=== PATIENT | male | born 1995 | race African-American/Black ===

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

== ENCOUNTER 2017-12-18 20:25 | Emergency (ER) | payer SELFPAY ==
[2017-12-18] MEDS ORDERED: FENTANYL CITRATE INJ/PF 100 MCG/2 ML AMPUL ONE (20:31)
[2017-12-18] MEDS ORDERED: CEFAZOLIN 1 GM/D5W RTU 1 GM/50 ML RTUPB IV ONE (20:32)
[2017-12-18] MEDS ORDERED: FENTANYL CITRATE INJ/PF 100 MCG/2 ML AMPUL IV ONE (20:38)
[2017-12-18] MEDS ORDERED: CEFAZOLIN INJ 1 GM VIAL IV ONE (20:39)
[2017-12-18] MEDS ORDERED: HYDROMORPHONE HCL INJ/PF 2 MG/ML AMPULE IV ONE (20:40)
[2017-12-18] MEDS ORDERED: NORMAL SALINE 1000 ML 1,000 ML IV ONE (20:40)
[2017-12-18 21:00] LABS: INTERNATIONAL RATION (INR) 0.92; PROTHROMBIN TIME 12.8 SEC (11.4-15.4)
[2017-12-18 21:01] LABS: PARTIAL THROMBOPLASTIN TIME 27.7 SEC (23.5-35.8)
[2017-12-18 21:05] LABS: HEMOGLOBIN 15.7 g/dL (13.5-17.0); MEAN CORPUSCULAR HEMOGLOBIN 28.9 pg (27.0-33.4); MEAN CORPUSCULAR HGB CONC 34.1 g/dL (32.0-36.0); MEAN CORPUSCULAR VOLUME 85 fl (80-97); PLATELET COUNT 322 10^3/uL (150-450); RED BLOOD COUNT 5.44 10^6/uL (4.35-5.55); RED CELL DISTRIBUTION WIDTH 12.8 % (11.5-14.0); WHITE BLOOD COUNT 11.9 10^3/uL (4.0-10.5)
[2017-12-18 21:13] LABS: ALANINE AMINOTRANSFERASE 42 U/L (21-72); ALCOHOL 19 mg/dL (NONE DETECTED); ALKALINE PHOSPHATASE 67 U/L (38-126); ANION GAP 16 (5-19); ASPARTATE AMINO TRANSFERASE 37 U/L (17-59); BILIRUBIN,DIRECT 0.4 mg/dL (0.0-0.4); BILIRUBIN,TOTAL 0.6 mg/dL (0.2-1.3); BLOOD UREA NITROGEN 15 mg/dL (7-20); CARBON DIOXIDE 23 mmol/L (22-30); CHLORIDE 107 mmol/L (98-107); GLUCOSE 119 mg/dL (75-110); POTASSIUM 3.9 mmol/L (3.6-5.0); SODIUM 146.4 mmol/L (137-145); TOTAL PROTEIN 8.3 g/dL (6.3-8.2)
--- NOTE | 2017-12-18 21:14 | RADIOLOGY REPORT (SQ) ---
EXAM DESCRIPTION: CT HEAD WITHOUT COMPLETED DATE/TIME: 12/18/2017 9:05 pm REASON FOR STUDY: trauma COMPARISON: None. TECHNIQUE: Axial images acquired through the brain without intravenous contrast. Images reviewed wi th bone, brain and subdural windows. Additional sagittal and coronal reconstructions were generated. Images stored on PACS. All CT scanners at this facility use dose modulation, iterative reconstruction, and/or weight based d osing when appropriate to reduce radiation dose to as low as reasonably achievable (ALARA). [facility]: Dose Right [facility]: CareDose [facility]: Dose Right [facility]: Teradose 4D [facility]: [employer] RADIATION DOSE: CT Rad equipment meets quality standard of care and radiation dose reduction techniq ues were employed. CTDIvol: 53.2 mGy. DLP: 1044 mGy-cm. mGy. LIMITATIONS: None. FINDINGS: VENTRICLES: Normal size and contour. CEREBRUM: No masses. No hemorrhage. No midline shift. No evidence for acute infarction. Normal gra y/white matter differentiation. No areas of low density in the white matter. CEREBELLUM: No masses. No hemorrhage. No alteration of density. No evidence for acute infarction. EXTRAAXIAL SPACES: No fluid collections. No masses. ORBITS AND GLOBE: No intra- or extraconal masses. Normal contour of globe without masses. CALVARIUM: No fracture. PARANASAL SINUSES: No fluid or mucosal thickening. SOFT TISSUES: No mass or hematoma. OTHER: No other significant finding. IMPRESSION: NORMAL BRAIN CT WITHOUT CONTRAST. EVIDENCE OF ACUTE STROKE: NO. COMMENT: Quality ID # [id number]: Final reports with documentation of one or more dose reduction techniques (e.g., Automated exposure control, adjustment of the mA and/or kV according to patient size, use of iterative reconstruction technique) TECHNICAL DOCUMENTATION: JOB ID: [id number] [employer]- All Rights Reserved Reading location - IP/workstation name: [email or web address]
--- NOTE | 2017-12-18 21:15 | RADIOLOGY REPORT (SQ) ---
EXAM DESCRIPTION: CT CERVICAL SPINE WITHOUT COMPLETED DATE/TIME: 12/18/2017 9:05 pm REASON FOR STUDY: trauma COMPARISON: None. TECHNIQUE: Axial images acquired through the cervical spine without intravenous contrast. Images re viewed with lung, soft tissue and bone windows. Reconstructed coronal and sagittal MPR images review ed. Images stored on PACS. All CT scanners at this facility use dose modulation, iterative reconstruction, and/or weight based d osing when appropriate to reduce radiation dose to as low as reasonably achievable (ALARA). [facility]: Dose Right [facility]: CareDose [facility]: Dose Right [facility]: Teradose 4D [facility]: [employer] RADIATION DOSE: CT Rad equipment meets quality standard of care and radiation dose reduction techniq ues were employed. CTDIvol: 23.6 mGy. DLP: 594 mGy-cm. mGy. LIMITATIONS: None. FINDINGS: ALIGNMENT: Anatomic. MINERALIZATION: Normal. VERTEBRAL BODIES: No fractures or dislocation. DISCS: No significant disc disease. FACETS, LATERAL MASSES, POSTERIOR ELEMENTS: No fractures. No dislocation. No acute findings. HARDWARE: None in the spine. VISUALIZED RIBS: No fractures. LUNG APICES AND SOFT TISSUES: No significant or acute findings. OTHER: No other significant finding. IMPRESSION: NO ACUTE OR SIGNIFICANT FINDINGS IN THE CERVICAL SPINE. TECHNICAL DOCUMENTATION: JOB ID: [id number] Quality ID # [id number]: Final reports with documentation of one or more dose reduction techniques (e.g., Au tomated exposure control, adjustment of the mA and/or kV according to patient size, use of iterative reconstruction technique) 2010 [employer]- All Rights Reserved Reading location - IP/workstation name: [email or web address]
--- NOTE | 2017-12-18 21:21 | RADIOLOGY REPORT (SQ) ---
EXAM DESCRIPTION: CT CHEST WITH COMPLETED DATE/TIME: 12/18/2017 9:05 pm REASON FOR STUDY: trauma COMPARISON: None. TECHNIQUE: CT scan of the chest performed using helical scanning technique with dynamic intravenous contrast injection. Images reviewed with lung, soft tissue and bone windows. Reconstructed coronal and sagittal MPR images reviewed. All images stored on PACS. All CT scanners at this facility use dose modulation, iterative reconstruction, and/or weight based d osing when appropriate to reduce radiation dose to as low as reasonably achievable (ALARA). [facility]: Dose Right [facility]: CareDose [facility]: Dose Right [facility]: Teradose 4D [facility]: [employer] CONTRAST TYPE AND DOSE: contrast/concentration: Isovue 370.00 mg/ml; Total Contrast Delivered: 100.0 ml; Total Saline Delivered: 70.0 ml RENAL FUNCTION: None required. The patient is less than 50 years old. RADIATION DOSE: CT Rad equipment meets quality standard of care and radiation dose reduction techniq ues were employed. CTDIvol: 20.2 - 21.1 mGy. DLP: 2785 mGy-cm. . LIMITATIONS: None. FINDINGS: LUNGS AND PLEURA: No opacities, nodules, masses. No pneumothorax. No effusions. HILAR AND MEDIASTINAL STRUCTURES: No identified masses or abnormal nodes. HEART AND VASCULAR STRUCTURES: No aneurysm or dissection. No central pulmonary emboli. No pericardi al effusion. HARDWARE: None in the chest. UPPER ABDOMEN: See separate report of the CT of the abdomen. THYROID AND OTHER SOFT TISSUES: No masses. No adenopathy. BONES: No significant finding. OTHER: No other significant finding. IMPRESSION: NORMAL CT OF THE CHEST WITH IV CONTRAST. TECHNICAL DOCUMENTATION: JOB ID: [id number] Quality ID # [id number]: Final reports with documentation of one or more dose reduction techniques (e.g., Au tomated exposure control, adjustment of the mA and/or kV according to patient size, use of iterative reconstruction technique) 2010 [employer]- All Rights Reserved Reading location - IP/workstation name: [email or web address]
[2017-12-18 21:25] LABS: ABSOLUTE LYMPHOCYTES# (MANUAL) 8.2 10^3/uL (0.5-4.7); ABSOLUTE MONOCYTES # (MANUAL) 0.6 10^3/uL (0.1-1.4); ABSOLUTE NEUTROPHILS# (MANUAL) 2.9 10^3/uL (1.7-8.2); BAND NEUTROPHILS % (MANUAL) 1 % (3-5); BASOPHILS % (MANUAL) 1 % (0-2); EOSINOPHILS % (MANUAL) 1 % (0-6); LYMPHOCYTES % (MANUAL) 62 % (13-45); METAMYELOCYTES % (MANUAL) 1 % (0); MONOCYTES % (MANUAL) 5 % (3-13); SEGMENTED NEUTROPHILS % (MAN) 22 % (42-78); TOTAL CELLS COUNTED 100
--- NOTE | 2017-12-18 21:28 | RADIOLOGY REPORT (SQ) ---
EXAM DESCRIPTION: CT ABD/PELVIS WITH IV ONLY COMPLETED DATE/TIME: 12/18/2017 9:05 pm REASON FOR STUDY: trauma COMPARISON: None. TECHNIQUE: CT scan of the abdomen and pelvis performed using helical scanning technique with dynamic intravenous contrast injection. No oral contrast. Images reviewed with lung, soft tissue, and bone windows. Reconstructed coronal and sagittal MPR images reviewed. Delayed images for evaluation of the urinary system also acquired. All images stored on PACS. All CT scanners at this facility use dose modulation, iterative reconstruction, and/or weight based d osing when appropriate to reduce radiation dose to as low as reasonably achievable (ALARA). [facility]: Dose Right [facility]: CareDose [facility]: Dose Right [facility]: Teradose 4D [facility]: Digital Royalty CONTRAST TYPE AND DOSE: 97 mL Omnipaque 350- low osmolar. RENAL FUNCTION: None required. The patient is less than 50 years old. RADIATION DOSE: . LIMITATIONS: None. FINDINGS: LOWER CHEST: See separate report of the CT of the chest. LIVER: Normal size. No masses. No dilated ducts. SPLEEN: Normal size. No focal lesions. PANCREAS: No masses. No significant calcifications. No adjacent inflammation or peripancreatic fluid collections. Pancreatic duct not dilated. GALLBLADDER: No identified stones by CT criteria. No inflammatory changes to suggest cholecystitis. ADRENAL GLANDS: No significant masses or asymmetry. RIGHT KIDNEY AND URETER: No solid masses. No significant calcifications. No hydronephrosis or hyd roureter. LEFT KIDNEY AND URETER: No solid masses. No significant calcifications. No hydronephrosis or hydr oureter. AORTA AND VESSELS: No aneurysm. No dissection. Renal arteries, SMA, celiac without stenosis. RETROPERITONEUM: No retroperitoneal adenopathy, hemorrhage or masses. BOWEL AND PERITONEAL CAVITY: Knee right colon is decompressed ; however, the degree of circumferentia l mural thickening is greater than expected in the setting of simple nondistention. This may represe nt segmental colitis or chronic inflammatory bowel disease. APPENDIX: Normal. PELVIS: No mass. No free fluid. Normal bladder. ABDOMINAL WALL: No masses. No hernias. BONES: Incidental note is made of left bette sacralization of the L5 vertebral body, noting a Bertolot ti segment. OTHER: No other significant finding. IMPRESSION: No evidence of visceral or osseous injury in this patient with reported trauma. Right h emicolon findings may represent sequela of chronic inflammatory bowel disease or segmental colitis. TECHNICAL DOCUMENTATION: JOB ID: [id number] Quality ID # [id number]: Final reports with documentation of one or more dose reduction techniques (e.g., Au tomated exposure control, adjustment of the mA and/or kV according to patient size, use of iterative reconstruction technique) 2010 [employer]- All Rights Reserved Reading location - IP/workstation name: [email or web address]
[2017-12-18 21:29] LABS: PLATELET COMMENT ADEQUATE; RBC MORPHOLOGY COMMENT NORMO-CYTIC/CHROMIC
--- NOTE | 2017-12-18 21:34 | RADIOLOGY REPORT (SQ) ---
EXAM DESCRIPTION: WRIST RIGHT 3 VIEWS COMPLETED DATE/TIME: 12/18/2017 9:17 pm REASON FOR STUDY: trauma COMPARISON: None. NUMBER OF VIEWS: Three views. TECHNIQUE: AP, lateral, and oblique radiographic images acquired of the right wrist. LIMITATIONS: None. FINDINGS: MINERALIZATION: Normal. BONES: Severely displaced, angulated transverse fractures of the distal radius and ulna diaphyses. SOFT TISSUES: No foreign body. OTHER: No other significant finding. IMPRESSION: Displaced, angulated transverse fractures of the distal radius and ulna. TECHNICAL DOCUMENTATION: JOB ID: [id number] [employer]- All Rights Reserved Reading location - IP/workstation name: [email or web address]
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
[2017-12-18] MEDS ORDERED: PROPOFOL INJ 200 MG/20 ML VIAL IV ONE (22:25)
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
[2017-12-19] MEDS ORDERED: HYDROMORPHONE HCL INJ/PF 2 MG/ML AMPULE IV ONE (00:10)
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
[2017-12-19 02:01] VITALS: BP 150/108
== END 2017-12-19 01:47 | disposition home or self-care (01) ==
LOC: ER 20:25
DX: S52.501A Unspecified fracture of the lower end of right radius, initial encounter for closed fracture (principal); S52.601A Unspecified fracture of lower end of right ulna, initial encounter for closed fracture; S61.511A Laceration without foreign body of right wrist, initial encounter; S80.812A Abrasion, left lower leg, initial encounter; S60.512A Abrasion of left hand, initial encounter; S40.211A Abrasion of right shoulder, initial encounter; S30.811A Abrasion of abdominal wall, initial encounter; M25.531 Pain in right wrist; V86.56XA Driver of dirt bike or motor/cross bike injured in nontraffic accident, initial encounter; J45.909 Unspecified asthma, uncomplicated
CPT/HCPCS: 96376; 99284; 99152; 96365; 96375; 36415; 80307; 85025; 85610; 85730; 80053; 73090; 73564; 73110; 70450; 71260; 72125; 74177; 25605; J0690; J3010; J1170 ×2; J7030; J2704

== ENCOUNTER 2017-12-20 13:20 | Day surgery (SDC) | payer SELFPAY ==
[2017-12-20 14:09] LABS: ABSOLUTE LYMPHOCYTES (AUTO) 1.6 10^3/uL (0.5-4.7); BASOPHILS % (AUTO) 0.5 % (0-2); EOSINOPHILS % (AUTO) 0.5 % (0-6); HEMOGLOBIN 14.6 g/dL (13.5-17.0); LYMPHOCYTES % (AUTO) 16.3 % (13-45); MEAN CORPUSCULAR HEMOGLOBIN 29.3 pg (27.0-33.4); MEAN CORPUSCULAR HGB CONC 34.7 g/dL (32.0-36.0); MEAN CORPUSCULAR VOLUME 85 fl (80-97); PLATELET COUNT 205 10^3/uL (150-450); RED BLOOD COUNT 4.97 10^6/uL (4.35-5.55); SEGMENTED NEUTROPHILS % (AUTO) 72.7 % (42-78); TOTAL CELLS COUNTED % (AUTO) 100 %; WHITE BLOOD COUNT 9.7 10^3/uL (4.0-10.5)
[2017-12-20] MEDS ORDERED: METOCLOPRAMIDE HCL INJ/PF 10 MG/2 ML SDV ONE (14:16)
[2017-12-20] MEDS ORDERED: SUCCINYLCHOLINE CHLORIDE INJ 200 MG/10 ML VIAL ONE (14:16)
[2017-12-20] MEDS ORDERED: DEXAMETHASONE SOD PHOSPHATE INJ 4 MG/1 ML VIAL ONE (14:16)
[2017-12-20] MEDS ORDERED: CEFAZOLIN 2 GM/D5W RTU 2 GM/50 ML RTUPB IV PRN (14:19)
[2017-12-20 14:33] LABS: ANION GAP 12 (5-19); BLOOD UREA NITROGEN 9 mg/dL (7-20); CALCIUM 9.6 mg/dL (8.4-10.2); CARBON DIOXIDE 25 mmol/L (22-30); CHLORIDE 104 mmol/L (98-107); GLUCOSE 97 mg/dL (75-110); SODIUM 141.1 mmol/L (137-145)
[2017-12-20] MEDS ORDERED: BUPIVACAINE HCL 0.25% /EPINEPHRINE INJ/PF 30 ML SDV ONE (14:36)
[2017-12-20] MEDS ORDERED: FENTANYL CITRATE INJ/PF 250 MCG/5 ML AMPULE ONE (15:34)
[2017-12-20] MEDS ORDERED: MIDAZOLAM 2 MG/2 ML INJ ONE (15:34)
[2017-12-20] MEDS ORDERED: FENTANYL CITRATE INJ/PF 100 MCG/2 ML AMPUL ONE (15:34)
[2017-12-20] MEDS ORDERED: MORPHINE SULFATE 10 MG/ML INJ ONE (15:35)
[2017-12-20] MEDS ORDERED: PROPOFOL INJ 200 MG/20 ML VIAL IV ONE (15:35)
[2017-12-20] MEDS ORDERED: MEPERIDINE HCL/PF INJ 25 MG/1 ML DISP.SYRIN IV PRN (16:32)
[2017-12-20] MEDS ORDERED: FENTANYL CITRATE INJ/PF 100 MCG/2 ML AMPUL IV PRN ×3 (16:32)
[2017-12-20] MEDS ORDERED: DIPHENHYDRAMINE HCL 50 MG/ML VIAL IV PRN (16:32)
[2017-12-20] MEDS ORDERED: PROMETHAZINE HCL INJ 25 MG/1 ML VIAL IV PRN (16:32)
[2017-12-20] MEDS ORDERED: MORPHINE SULFATE 10 MG/ML INJ IV PRN (16:32)
[2017-12-20] MEDS ORDERED: MEPERIDINE HCL/PF INJ 25 MG/1 ML DISP.SYRIN ONE (18:10)
--- NOTE | 2017-12-20 18:33 | Operative Report ---
Operative Report DATE OF SURGERY: 12/20/17 PREOPERATIVE DIAGNOSIS: Right distal third radius and ulna shaft fractures POSTOPERATIVE DIAGNOSIS: Same OPERATION: Open reduction internal fixation of the radius and ulna fractures SURGEON: DOMINIQUE MARTÍNEZ ANESTHESIA: GA TISSUE REMOVED OR ALTERED: None COMPLICATIONS: None ESTIMATED BLOOD LOSS: Less than 20 mL INTRAOPERATIVE FINDINGS: As above PROCEDURE: Patient received preoperative antibiotics in the holding area and then was taken the operating room where he was used under general anesthetic. The tourniquet was applied to the right upper extremity and the right upper extremity was prepped and draped in a normal sterile surgical fashion. Once timeout identified the right forearm is a correct site Esmarch was used to exsanguinate the extremity and the tourniquet was inflated at 250 mmHg. A standard volar approach of [place] was done for the radius fracture and blunt dissection was done using Metzenbaum scissors and my finger and then [employer] for retraction. Once I identified the fracture a released the pronator quadratus distally and reflected the flexor muscle belly and supinator off of the proximal aspect. I was able to successfully reduce the radial shaft fracture and applied a 7-hole plate. This was secured with a lobster claw and then I proceeded to place my 2 screws in the proximal distal and on the center called to then cause compression of the fracture site. The remaining screws were placed and measured to correlate with the use of C arm and depth gauge. C- arm confirmed the length and the reduction. At this point bulb irrigation was used to clean the extremity and then I used 0 Vicryl 3-0 Vicryl to approximate the subcutaneous tissue and then kenton for skin. I turned my attention to the ulna where I did a incorporation of road rash and to my incision and extended proximally distally. Subcutaneous tissue was then dissected with Metzenbaum scissors. I exposed to what I believe was a branch if not the main dorsal cutaneous nerve of the ulna. This was reflected in the fracture site was exposed and irrigated and washed. I released the periosteum off of the fracture site and a reduced my fracture using lobster claws. This was then held and a 6 hole plate was applied from the ankle solutions set. Pictures were taken to make sure it was distal enough and I was able to place 2 screws in the distal fragment and then 3 screws on the proximal fragment. I first placed my 2 compression screws adjacent to the fracture and measured and secured my plate and reduction. C-arm allowed me to confirm and visualize the length and reduction. I used a distal locking screw for the most distal hole of the ulnar head but this was the last screw placed after had filled the compression screws in the proximal fragment. Final x-rays were taken showing reduction as well as fixation. Irrigation was used and then I see the close my wound with 0 Vicryl 3-0 Vicryl and then kenton for skin. Xeroform 4 x 4 dressing was applied and then overwrapped with a soft roll and Vlad bandage. Tourniquet was let down at 88 minutes. Patient was placed in a volar Ortho- Glass splint and then secured with a sling. Patient was then awoken and then taken to PACU in stable condition.
[2017-12-20] MEDS ORDERED: OXYCODONE-ACETAMINOPHEN 5-325 MG TABLET PO PRN ×2 (18:36)
--- NOTE | 2017-12-20 18:36 | Discharge Summary ---
Discharge Summary (SDC) - Discharge Final Diagnosis: ORIF of the right both bone forearm fracture Date of Surgery: 12/20/17 Discharge Date: 12/20/17 Condition: Good Treatment or Instructions: Keep the splint and dressing dry clean and intact. Nonweightbearing right upper extremity. Sling for comfort. Ice and elevate the right upper extremity. Finish the p.o. antibiotics prescribed at the discharge in the ER. Prescription for Percocet was provided today. Instructed to follow-up in 10-14 days in the office. Prescriptions: Oxycodone HCl/Acetaminophen [Percocet 7.5-325 mg Tablet] 1 - 2 tab PO ASDIR PRN #30 tab PRN Reason: Referrals: NATA MIRANDA MD [Primary Care Provider] - Discharge Diet: As Tolerated Respiratory Treatments at Home: Deep Breathing/Coughing Discharge Activity: No Driving, No Lifting/Push/Pulling Report the Following to Your Physician Immediately: Shortness of Breath, Vomiting, Increase in Pain, Yellow Skin, Fever over 101 Degrees, Unusual Bleeding, Redness, Swelling, Warmth, Increased Soreness, Drainage-Yellow, Drainage-Quinones, Drainage-Green, Drainage-Foul Smelling
--- NOTE | 2017-12-20 19:00 | RADIOLOGY REPORT (SQ) ---
EXAM DESCRIPTION: NO CHG FLUORO; FOREARM RIGHT COMPLETED DATE/TIME: 12/20/2017 6:34 pm REASON FOR STUDY: ORIF RIGHT RADIUS AND ULNA FRACTURE ASSISTED W/ FLUOR IN OR COMPARISON: 12/18/2017 FLUOROSCOPY TIME: 0.6 minutes 2 Images saved to PACS LIMITATIONS: None. PROCEDURE: Fall ORIF fractures of the forearm. FINDINGS: Images obtained with fluoro document placement of compression plates on the distal radius and ulna. Multiple screws are present. IMPRESSION: ORIF radial and ulnar fractures. COMMENT: PQRS 6045F: Fluoroscopy time of the procedure is documented in the report. TECHNICAL DOCUMENTATION: JOB ID: [id number] [employer]- All Rights Reserved Reading location - IP/workstation name: [email or web address]
--- NOTE | 2017-12-20 19:00 | RADIOLOGY REPORT (SQ) ---
EXAM DESCRIPTION: NO CHG FLUORO; FOREARM RIGHT COMPLETED DATE/TIME: 12/20/2017 6:34 pm REASON FOR STUDY: ORIF RIGHT RADIUS AND ULNA FRACTURE ASSISTED W/ FLUOR IN OR COMPARISON: 12/18/2017 FLUOROSCOPY TIME: 0.6 minutes 2 Images saved to PACS LIMITATIONS: None. PROCEDURE: Fall ORIF fractures of the forearm. FINDINGS: Images obtained with fluoro document placement of compression plates on the distal radius and ulna. Multiple screws are present. IMPRESSION: ORIF radial and ulnar fractures. COMMENT: PQRS 6045F: Fluoroscopy time of the procedure is documented in the report. TECHNICAL DOCUMENTATION: JOB ID: [id number] [employer]- All Rights Reserved Reading location - IP/workstation name: [email or web address]
[2017-12-20 20:08] VITALS: BP 190/106
== END 2017-12-20 20:18 | disposition home or self-care (01) ==
LOC: OROUT 13:20 → 4S 19:11 → OROUT 20:18
PROVIDERS: ATTEND Orthopaedic Surgery
DX: S52.201A Unspecified fracture of shaft of right ulna, initial encounter for closed fracture (principal); S52.501A Unspecified fracture of the lower end of right radius, initial encounter for closed fracture; S52.601A Unspecified fracture of lower end of right ulna, initial encounter for closed fracture; V86.96XA Unspecified occupant of dirt bike or motor/cross bike injured in nontraffic accident, initial encounter; J45.909 Unspecified asthma, uncomplicated; F17.210 Nicotine dependence, cigarettes, uncomplicated
CPT/HCPCS: 36415; 85025; 80048; 73090; 25607; 25652; J2250; J3490; J1100; J3010 ×2; J2175; J2765; J0330; J2704; J0690; 01830; J2270

== ENCOUNTER 2019-04-23 16:32 | Emergency (ER) | payer SELFPAY ==
[2019-04-23] MEDS ORDERED: IBUPROFEN 800 MG TABLET PO ONE (16:54)
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
--- NOTE | 2019-04-23 17:37 | RADIOLOGY REPORT (SQ) ---
EXAM DESCRIPTION: KNEE LEFT 4 VIEW COMPLETED DATE/TIME: 04/23/2019 5:14 pm REASON FOR STUDY: left knee pain, fall x 2 days ago COMPARISON: None. NUMBER OF VIEWS: Four views. TECHNIQUE: AP, lateral, and both oblique radiographic images acquired of the left knee. LIMITATIONS: None. FINDINGS: MINERALIZATION: Normal. BONES: Small ossicles at the posterior margin of the medial tibia plateau. JOINT: Joint effusion. SOFT TISSUES: No soft tissue swelling. No radio-opaque foreign body. OTHER: No other significant finding. IMPRESSION: Small ossicles at the posterior margin and medial tibial plateau concerning for fracture in the setting of a joint effusion. Consider CT for further evaluation. TECHNICAL DOCUMENTATION: JOB ID: [id number]- All Rights Reserved Reading location - IP/workstation name: [email or web address]
[2019-04-23 19:01] VITALS: BP 173/97
== END 2019-04-23 18:50 | disposition home or self-care (01) ==
LOC: ER 16:32
DX: S89.92XA Unspecified injury of left lower leg, initial encounter (principal); S82.142A Displaced bicondylar fracture of left tibia, initial encounter for closed fracture; V00.131A Fall from skateboard, initial encounter; Y93.51 Activity, roller skating (inline) and skateboarding; G89.29 Other chronic pain; K08.9 Disorder of teeth and supporting structures, unspecified; R00.0 Tachycardia, unspecified; I10 Essential (primary) hypertension
CPT/HCPCS: 73564; L1830; 99283

== ENCOUNTER 2020-02-19 15:02 | Emergency (ER) | payer SELFPAY ==
[2020-02-19] MEDS ORDERED: KETOROLAC TROMETHAMINE 60 MG/2 ML SDV IM ONE (15:50)
[2020-02-19] MEDS ORDERED: DEXAMETHASONE SOD PHOS INJ 10 MG/1 ML VIAL IM ONE (15:50)
[2020-02-19] MEDS ORDERED: LIDOCAINE 5% (700 MG) TRANSDERMAL ADH..PATCH TP ONE (15:50)
[2020-02-19] MEDS ORDERED: CYCLOBENZAPRINE HCL 10 MG TABLET PO ONE (15:51)
[2020-02-19] MEDS ORDERED: DEXAMETHASONE SOD PHOSPHATE INJ 4 MG/1 ML VIAL ONE (15:54)
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
--- NOTE | 2020-02-19 17:51 | RADIOLOGY REPORT (SQ) ---
EXAM DESCRIPTION: L SPINE WHOLE IMAGES COMPLETED DATE/TIME: 02/19/2020 4:19 pm REASON FOR STUDY: Back pain radiating down both legs COMPARISON: None. NUMBER OF VIEWS: Five views including obliques. TECHNIQUE: AP, lateral, oblique, and sacral radiographic images acquired of the lumbar spine. LIMITATIONS: None. FINDINGS: MINERALIZATION: Normal. SEGMENTATION: Normal. No transitional anatomy. ALIGNMENT: Normal. VERTEBRAE: Maintained height. No fracture or worrisome bone lesion. DISCS: Preserved height. No significant osteophytes or end plate irregularity. POSTERIOR ELEMENTS: Pedicles and facets are intact. No pars defect or posterior arch defects. HARDWARE: None in the spine. PARASPINAL SOFT TISSUES: Normal. PELVIS: Intact as visualized. No fractures or worrisome bone lesions. SI joints intact. OTHER: No other significant finding. IMPRESSION: No radiographic abnormality of the lumbar spine. TECHNICAL DOCUMENTATION: JOB ID: [id number] [employer] All Rights Reserved Reading location - IP/workstation name: [email or web address]
[2020-02-19 18:25] VITALS: BP 142/78
== END 2020-02-19 18:29 | disposition home or self-care (01) ==
LOC: ER 15:02
DX: M54.42 Lumbago with sciatica, left side (principal); M54.41 Lumbago with sciatica, right side; X50.0XXA Overexertion from strenuous movement or load, initial encounter; K59.00 Constipation, unspecified; F17.210 Nicotine dependence, cigarettes, uncomplicated
CPT/HCPCS: 99284; 96372; 72110; J1885; J1100